=== PATIENT | female | born 1985 | race Caucasian/White ===

== ENCOUNTER 2023-07-02 03:50 | Inpatient (IN) | payer MEDICAID, OTHER ==
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
[2023-07-02 05:42] LABS: Basophils % (A) 0 %; Eosinophils # (A) 0.2 k/uL (0-0.7); Eosinophils % (A) 2 %; HCT 40.8 % (34.0-46.0); HGB 13.3 gm/dL (11.4-16.0); Lymphocytes # (A) 1.8 k/uL (1.0-4.8); Lymphocytes % (A) 22 %; MCH 28.3 pg (25.0-35.0); MCHC 32.6 g/dL (31.0-37.0); MCV 86.8 fL (80.0-100.0); Mean Platelet Volume 7.6; Monocytes # (A) 0.4 k/uL (0-1.0); Monocytes % (A) 4 %; Neutrophils # (A) 5.8 k/uL (1.3-7.7); Neutrophils % (A) 70 %; Platelet Count 350 k/uL (150-450); RDW 13.8 % (11.5-15.5); WBC 8.2 k/uL (3.8-10.6)
[2023-07-02 05:46] LABS: Acetaminophen <10.0 ug/mL; Alcohol <10 mg/dL; Salicylate <1.0 mg/dL
[2023-07-02 13:35] LABS: ALT 22 U/L (4-34); AST 21 U/L (14-36); African American GFR (CKD) >90 (>60 ml/min/1.73 sqM); Albumin 4.1 g/dL (3.5-5.0); Alkaline Phosphatase 71 U/L (38-126); Anion Gap 14 mmol/L; Blood Urea Nitrogen 13 mg/dL (7-17); Calcium 9.3 mg/dL (8.4-10.2); Carbon Dioxide 22 mmol/L (22-30); Chloride 104 mmol/L (98-107); Glucose 165 mg/dL (74-99); Non-African American GFR(CKD) >90 (>60 ml/min/1.73 sqM); Potassium 3.9 mmol/L (3.5-5.1); Sodium 140 mmol/L (137-145); Total Bilirubin 0.4 mg/dL (0.2-1.3); Total Protein 7.3 g/dL (6.3-8.2)
[2023-07-02] MEDS ORDERED: ACETAMINOPHEN TAB 325 MG TAB PO PRN (20:49)
[2023-07-02] MEDS ORDERED: MAG HYDROX/AL HYDROX/SIMETH 30 ML CUP PO PRN (20:49)
[2023-07-02] MEDS ORDERED: MAGNESIUM HYDROXIDE 2,400 MG/30 ML CUP PO PRN (20:49)
[2023-07-02] MEDS ORDERED: HALOPERIDOL LACTATE 5 MG/ML 1 ML VIAL IM PRN (20:52)
[2023-07-02] MEDS ORDERED: haloperidoL 5 MG TAB PO PRN (20:52)
[2023-07-02] MEDS ORDERED: LORazepam 2 MG/ML INJ IM PRN (20:52)
[2023-07-02] MEDS ORDERED: LORazepam 1 MG TAB PO PRN (20:52)
[2023-07-03] MEDS: LEVOTHYROXINE 25 MCG TAB PO SCH (06:54)
[2023-07-03] MEDS ORDERED: OXcarbazepine 300 MG TAB PO SCH (09:00)
[2023-07-03] MEDS ORDERED: NICOTINE 14MG/24HR PATCH TRANSDERM SCH (09:00)
[2023-07-03] MEDS: metFORMIN 500 MG TAB PO SCH ×2 (09:41→18:09)
[2023-07-03] MEDS: CHOLECALCIFEROL 25 MCG (1000 IU) TABLET PO SCH (09:43)
[2023-07-03] MEDS: VIENVA PO SCH (09:49)
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
[2023-07-03] MEDS ORDERED: DEXTROSE 50% SYRINGE 50 ML IVP PRN ×2 (12:34)
[2023-07-03] MEDS ORDERED: ALBUTEROL INHALER 60 PUFF/8 GM INHALER (MHU) INHALATION PRN (12:34)
--- NOTE | 2023-07-03 12:35 | P.CONS ---
History of Present Illness - Reason for Consult Consult date: 07/03/23 - Chief Complaint Flight of ideas - History of Present Illness * 37-year-old patient who presented to the emergency department in need for a test. She has a past medical history significant for hypothyroid, asthma, diabetes mellitus At the time of evaluation in ER patient had flight of ideas, and elicited depressed mood, patient was noted to be risk for self- harm and was admitted to behavioral health unit for depression and suicidal ideation. * Workup obtained at the time of presentation included CBC which was essentially normal, serum chemistry showed normal sodium renal profile blood glucose 165 * Toxicology within normal limits patient tested negative for Covid, urine test ordered however pending REVIEW OF SYSTEMS: CONSTITUTIONAL: No fever, no malaise, no fatigue. HEENT: No recent visual problems or hearing problems. Denied any sore throat. CARDIOVASCULAR: No chest pain, orthopnea, PND, no palpitations, no syncope. PULMONARY: No shortness of breath, no cough, no hemoptysis. GASTROINTESTINAL: No diarrhea, no nausea, no vomiting, no abdominal pain. NEUROLOGICAL: No headaches, no weakness, no numbness. HEMATOLOGICAL: Denies any bleeding or petechiae. GENITOURINARY: Denies any burning micturition, frequency, or urgency. MUSCULOSKELETAL/RHEUMATOLOGICAL: Denies any joint pain, swelling, or any muscle pain. ENDOCRINE: Denies any polyuria or polydipsia. PHYSICAL EXAMINATION: GENERAL: The patient is alert and oriented x3, not in any acute distress. Well developed, well nourished. HEENT: Pupils are round and equally reacting to light. EOMI. No scleral icterus. CARDIOVASCULAR: S1 and S2 present. No murmurs, rubs, or gallops. PULMONARY: Chest is clear to auscultation, no wheezing or crackles. ABDOMEN: Soft, nontender, nondistended, normoactive bowel sounds. No palpable organomegaly. MUSCULOSKELETAL: No joint swelling or deformity. EXTREMITIES: No cyanosis, clubbing, or pedal edema. NEUROLOGICAL: Gross neurological examination did not reveal any focal deficits. SKIN: No rashes. Past Medical History Past Medical History: Diabetes Mellitus History of Any Multi-Drug Resistant Organisms: None Reported Past Surgical History: No Surgical Hx Reported Past Anesthesia/Blood Transfusion Reactions: No Reported Reaction Past Psychological History: Unable to Obtain Smoking Status: Never smoker Past Alcohol Use History: None Reported Past Drug Use History: None Reported - Past Family History Father Family Medical History: Unable to Obtain Mother Family Medical History: Unable to Obtain Medications and Allergies Home Medications Medication Instructions Recorded Confirmed Type Cholecalciferol [Vitamin D3 (25 50 mcg PO DAILY 07/02/23 07/02/23 History Mcg = 1000 Iu)] Levothyroxine Sodium [Synthroid] 25 mcg PO DAILY 07/02/23 07/02/23 History OXcarbazepine [Trileptal] 300 mg PO BID 07/02/23 07/02/23 History Vienva 0.1mg-20mcg 1 tab PO DAILY 07/02/23 07/02/23 History metFORMIN HCL ER [Glucophage XR] 500 mg PO W/SUPPER 07/02/23 07/02/23 History risperiDONE MICROSPHERES 25 mg IM Q14D 07/02/23 07/02/23 History [RisperDAL CONSTA] Allergies Allergy/AdvReac Type Severity Reaction Status Date / Time No Known Allergies Allergy Verified 07/02/23 06:45 Physical Exam Vitals: Vital Signs Temp Pulse Pulse Resp BP BP Pulse Ox 07/02/23 21:32 98.1 F 97 18 136/82 99 07/02/23 17:43 97.4 F L 89 18 107/71 99 Intake and Output 07/02/23 07/03/23 07/03/23 22:59 06:59 14:59 Other: Weight 109.117 kg Results CBC & Chem 7: 07/02/23 04:21 07/02/23 13:10 Labs: Abnormal Lab Results - Last 24 Hours (Table) 07/02/23 Range/Units 13:10 Glucose 165 H (74-99) mg/dL Assessment and Plan Assessment: Assessment and plan * Depression with suicidal ideation * Hypothyroid * History of asthma * Diabetes mellitus type 2 * In regards to her depressed mood, continue management in behavioral health unit continued debridement and kane safety precautions * In regards to hypothyroid continue patient on Synthyroid * In regards to history of asthma continue albuterol as needed * In regards to diabetes mellitus continue patient on metformin, continue c orrectional insulin and Accu-Cheks Time with Patient: Greater than 30
[2023-07-03 17:59] LABS: Glucose,Whole Blood 105 mg/dL (70-110)
[2023-07-03] MEDS: INSULIN ASPART (NovoLOG) 100 UNIT/ML VIAL SQ SCH ×2 (18:08→20:16)
[2023-07-03 20:07] LABS: Glucose,Whole Blood 116 mg/dL (70-110)
[2023-07-03] MEDS: PALIPERIDONE 3 MG TAB.ER.24 PO SCH (20:59)
[2023-07-03] MEDS: traZODone HCL 50 MG TAB PO SCH (20:59)
[2023-07-04] MEDS: LEVOTHYROXINE 25 MCG TAB PO SCH (06:35)
[2023-07-04 07:52] LABS: Glucose,Whole Blood 136 mg/dL (70-110)
[2023-07-04] MEDS: INSULIN ASPART (NovoLOG) 100 UNIT/ML VIAL SQ SCH ×4 (08:31→20:14)
[2023-07-04] MEDS: VIENVA PO SCH (09:16)
[2023-07-04] MEDS: metFORMIN 500 MG TAB PO SCH ×2 (09:23→17:58)
[2023-07-04] MEDS: PALIPERIDONE 3 MG TAB.ER.24 PO SCH (09:24)
[2023-07-04] MEDS: CHOLECALCIFEROL 25 MCG (1000 IU) TABLET PO SCH (09:24)
--- NOTE | 2023-07-04 11:23 | P.PN ---
Progress Note - Text Progress Note Date: 07/04/23 Interval History: Patient was seen [wandering the hallways] and was directable and agreeable to speak with health underwriter in the office. Patient states she's "goiing great" and the meds are "marika helping her relax." . At this time patient denies any suicidal or homical ideations, intent or plan. Patient continues to be Disorganized, bizarre. tangential. Patient continues having AH, of her "mother in law" telling her what to do, denies visual hallucinations and still remains dilusional about "the world being in a holocaust" States she got no sleep because she was pondering how to "take over the world". Patient had underwear hanging from her mouth, and socks on her hands Patient denies any side effects from the medications and has been compliant with meds. Mental Status Exam: General Appearance: Patient appears to be disheveled, and older than stated age. is alert, patient dressed in street clothing, with a hospital gown over it, attempts to cooperate. Patient appears to have poor hygiene and grooming. Behavior: [Patient is calmly seated without any agitated behavior. Bizarre Loose associations. Speech: Patient's speech is fluent and nonpressured. Disorganized, bizarre. tangential Mood/Affect: Mood is improving mildly, affect is congruent and constricted. Suicidality/Homicidality: Patient denies having any suicidal or homicidal ideation intent or plan. Perceptions: Patient denies any visual hallucinations and denies any auditory hallucinations Though content/process: Patient is delusional, paranoid, disorganized, loose associations. Memory and concentration: AOX3, grossly intact for the purposes of this session Judgment and insight:: chronically poor Assessment Schizophrenia Plan: -Patient is admitted under involuntary status to MHU for stabilization of psychiatric symptoms and safety. Patient has not signed adult voluntary form and medication consent and is placed in patient's chart. A second certification was completed and along with petition will be filed for court. -Medication: increase.Invega po 6mg qhs and Invega 3mg qam for psychosis, trazadone 50mg qhs for sleep/mood. plan will be to switch patient onto Invegas sustenna to ensure compliance -When necessary Ativan and Haldol for agitation/aggression. -NRT - non smoker -SW on board for discharge planning. Encouraged the patient to participate in milieu. Currently awaiting deferral with brasswind instrument repairer and court date.[]
[2023-07-04 12:47] LABS: Glucose,Whole Blood 97 mg/dL (70-110)
[2023-07-04 13:26] LABS: N. gonorrhoeae,PCR Negative (Negative)
[2023-07-04 17:57] LABS: Glucose,Whole Blood 118 mg/dL (70-110)
[2023-07-04 20:11] LABS: Glucose,Whole Blood 140 mg/dL (70-110)
[2023-07-04] MEDS: traZODone HCL 50 MG TAB PO SCH (21:19)
[2023-07-04] MEDS: PALIPERIDONE 6 MG TAB.ER.24 PO SCH (21:19)
[2023-07-05] MEDS: LEVOTHYROXINE 25 MCG TAB PO SCH (06:25)
[2023-07-05 07:57] LABS: Glucose,Whole Blood 135 mg/dL (70-110)
[2023-07-05] MEDS: INSULIN ASPART (NovoLOG) 100 UNIT/ML VIAL SQ SCH ×4 (09:15→20:14)
[2023-07-05] MEDS: metFORMIN 500 MG TAB PO SCH ×2 (09:18→20:52)
[2023-07-05] MEDS: PALIPERIDONE 3 MG TAB.ER.24 PO SCH (09:19)
[2023-07-05] MEDS: CHOLECALCIFEROL 25 MCG (1000 IU) TABLET PO SCH (09:19)
[2023-07-05] MEDS: VIENVA PO SCH (09:20)
--- NOTE | 2023-07-05 09:58 | P.PN ---
Progress Note - Text Progress Note Date: 07/05/23 Interval History: Patient was seen wandering the hallways and was directable and agreeable to speak with typewriter assembly and parts inspector in the office. Patient claims that she is scared of sports therapist Herminia. She claims he believes that he is her father. She continues to ramble, continues to be fairly delusional, loosely formed. Disorganized thoughts. Claims that she did not sleep well last night. Has mainly keeping herself in her room. Continues to have unkempt/disheveled appearance. Patient had underwear hanging from her mouth, and socks on her hands Patient denies any side effects from the medications and has been compliant with meds. Mental Status Exam: General Appearance: Patient appears to be disheveled, and older than stated age. is alert, patient dressed in street clothing, with a hospital gown over it, attempts to cooperate. Patient appears to have poor hygiene and grooming. Behavior: [Patient is calmly seated without any agitated behavior. Bizarre Loose associations. Speech: Patient's speech is fluent and nonpressured. Disorganized, bizarre. tangential Mood/Affect: Mood is improving mildly, affect is congruent and constricted. Suicidality/Homicidality: Patient denies having any suicidal or homicidal ideation intent or plan. Perceptions: Patient denies any visual hallucinations and denies any auditory hallucinations Though content/process: Patient is delusional, paranoid, disorganized, loose associations. Memory and concentration: AOX3, grossly intact for the purposes of this session Judgment and insight:: chronically poor Assessment Schizophrenia Plan: -Patient is admitted under involuntary status to MHU for stabilization of psychiatric symptoms and safety. Patient has not signed adult voluntary form and medication consent and is placed in patient's chart. A second certification was completed and along with petition will be filed for court. -Medication: Invega po 6mg qhs and 3mg qam for psychosis, increased trazadone 100 mg qhs for sleep/mood. plan will be to switch patient onto Invegas sustenna to ensure compliance -When necessary Ativan and Haldol for agitation/aggression. -NRT - non smoker -SW on board for discharge planning. Encouraged the patient to participate in milieu. Currently awaiting deferral with litigation attorney and court date.
[2023-07-05 12:52] LABS: Glucose,Whole Blood 124 mg/dL (70-110)
[2023-07-05 13:12] LABS: Amorphous Sediment,Urine Rare /hpf; Appearance,Urine Cloudy (Clear); Bacteria,Urine Rare /hpf; Bilirubin,Urine Negative (Negative); Blood,Urine Negative (Negative); Color,Urine Light Yellow; Glucose,Urine (UA) 3+ (Negative); Ketones,Urine Negative (Negative); Leukocyte Esterase,Urine Negative (Negative); Mucus,Urine Few /hpf; Nitrite,Urine Negative (Negative); PH, Urine 5.5 (5.0-8.0); Protein,Urine Negative (Negative); RBC,Urine 1 /hpf (0-5); Specific Gravity,Urine 1.021 (1.001-1.035); Squamous Epithelial Cell,Urine 7 /hpf (0-4); Urobilinogen,Urine <2.0 mg/dL (<2.0); WBC,Urine 1 /hpf (0-5)
[2023-07-05 13:15] LABS: Amphetamine Screen,Urine Not Detected (NotDetected); Barbiturate Screen,Urine Not Detected (NotDetected); Benzodiazepines Screen,Urine Not Detected (NotDetected); Cocaine Screen,Urine Not Detected (NotDetected); Methadone Screen, Urine Not Detected (NotDetected); Opiate Screen,Urine Not Detected (NotDetected); Oxycodone Screen, Urine Not Detected (NotDetected); Phencyclidine Screen,Urine Not Detected (NotDetected); Tricyclic Antidepressant,Urine Not Detected (NotDetected); Urn Cannabinoid Scrn Not Detected (NotDetected)
[2023-07-05 17:38] LABS: Glucose,Whole Blood 126 mg/dL (70-110)
[2023-07-05 20:12] LABS: Glucose,Whole Blood 137 mg/dL (70-110)
[2023-07-05] MEDS: traZODone HCL 100 MG TAB PO SCH (20:52)
[2023-07-05] MEDS: PALIPERIDONE 6 MG TAB.ER.24 PO SCH (20:52)
[2023-07-06] MEDS: LEVOTHYROXINE 25 MCG TAB PO SCH (06:39)
[2023-07-06 07:45] LABS: Glucose,Whole Blood 125 mg/dL (70-110)
[2023-07-06] MEDS: INSULIN ASPART (NovoLOG) 100 UNIT/ML VIAL SQ SCH (09:18)
[2023-07-06] MEDS: PALIPERIDONE 3 MG TAB.ER.24 PO SCH (09:20)
[2023-07-06] MEDS: metFORMIN 500 MG TAB PO SCH ×2 (09:20→18:29)
[2023-07-06] MEDS: CHOLECALCIFEROL 25 MCG (1000 IU) TABLET PO SCH (09:21)
[2023-07-06] MEDS: VIENVA PO SCH (10:09)
--- NOTE | 2023-07-06 10:37 | P.PN ---
Progress Note - Text Progress Note Date: 07/06/23 Interval History: Patient was seen wandering the hallways and was directable and agreeable to speak with marketing underwriter in the office. She claims that she has been mainly staying in her room. She claims that she is feeling tired today. She states that she wants to be reunited with her mother again who has [place]. She continues to ramble, continues to be fairly delusional, loosely formed, improving mildly. Claims that she did sleep well last night however states that be feeling tired at this time.Continues to have unkempt/disheveled appearance. Patient had underwear hanging from her mouth, and socks on her hands Patient denies any side effects from the medications and has been compliant with meds. Mental Status Exam: General Appearance: Patient appears to be disheveled, and older than stated age. is alert, patient dressed in street clothing, with a hospital gown over it, attempts to cooperate. Patient appears to have poor hygiene and grooming. Behavior: [Patient is calmly seated without any agitated behavior. Bizarre Loose associations. Maryuri improving Speech: Patient's speech is fluent and nonpressured. Disorganized, Cristo, improving Mood/Affect: Mood is improving mildly, affect is congruent and constricted. Suicidality/Homicidality: Patient denies having any suicidal or homicidal ideation intent or plan. Perceptions: Patient denies any visual hallucinations and denies any auditory hallucinations Though content/process: Patient is delusional, paranoid, disorganized, loose associations. Memory and concentration: AOX3, grossly intact for the purposes of this session Judgment and insight:: chronically poor, improving mildly Assessment Schizophrenia Plan: -Patient is admitted under involuntary status to MHU for stabilization of psychiatric symptoms and safety. Patient has not signed adult voluntary form and medication consent and is placed in patient's chart. -Medication: Invega po 6mg qhs and 3mg qam for psychosis, trazadone 100 mg qhs for sleep/mood. plan will be to switch patient onto Invegas sustenna to ensure compliance -When necessary Ativan and Haldol for agitation/aggression. -NRT - non smoker -SW on board for discharge planning. Encouraged the patient to participate in milieu. Currently awaiting deferral with compliance attorney and court date.
[2023-07-06] MEDS: PALIPERIDONE 6 MG TAB.ER.24 PO SCH (20:26)
[2023-07-06] MEDS: traZODone HCL 100 MG TAB PO SCH (20:26)
[2023-07-07] MEDS: LEVOTHYROXINE 25 MCG TAB PO SCH (07:03)
[2023-07-07] MEDS: VIENVA PO SCH (08:21)
[2023-07-07] MEDS: PALIPERIDONE 3 MG TAB.ER.24 PO SCH ×2 (08:21→21:05)
[2023-07-07] MEDS: metFORMIN 500 MG TAB PO SCH ×2 (08:21→21:05)
[2023-07-07] MEDS: CHOLECALCIFEROL 25 MCG (1000 IU) TABLET PO SCH (08:22)
--- NOTE | 2023-07-07 11:54 | P.PN ---
Progress Note - Text Progress Note Date: 07/07/23 Interval History: Patient was seen wandering the hallways and was directable and agreeable to speak with communications writer in the office. Claims that she is scared of Evelyn Ryan, her "so called mom". Claims that she did sleep well last night. States she is more awake today, denies AH/VH. denies SI/HI. She is going to some groups. Patient still rambling and having loose associations, mildly improving..Continues to have unkempt/disheveled appearance, mildly improving.. mainly been isolating on the unit. patient appears to be mildly less bizarre and more appropriate during interaction/conversation. Patient denies any side effects from the medications and has been compliant with meds. Still waiting for patent prosecution attorney to come for deferral vs treatment order. Mental Status Exam: General Appearance: Patient appears to be disheveled, and older than stated age. is alert, patient dressed in street clothing, with a hospital gown over it, attempts to cooperate. Patient appears to have poor hygiene and grooming. Behavior: Patient is calmly seated without any agitated behavior. Bizarre Loose associations. mildly improving Speech: Patient's speech is fluent and nonpressured. Disorganized, Bizarre, mildly improving Mood/Affect: Mood is improving mildly, affect is congruent and constricted. Suicidality/Homicidality: Patient denies having any suicidal or homicidal ideation intent or plan. Perceptions: Patient denies any visual hallucinations and denies any auditory hallucinations Though content/process: Patient is delusional, paranoid, disorganized, loose associations.mildly improving Memory and concentration: AOX3, grossly intact for the purposes of this session Judgment and insight:: chronically poor, improving mildly Assessment Schizophrenia Plan: -Patient is admitted under involuntary status to MHU for stabilization of psychiatric symptoms and safety. Patient has not signed adult voluntary form and medication consent and is placed in patient's chart. -Medication: increase Invega po 9mg qhs and 3mg qam for psychosis, decrease trazadone 50 mg qhs for sleep/mood. plan will be to switch patient onto Invegas sustenna to ensure compliance -When necessary Ativan and Haldol for agitation/aggression. -NRT - non smoker -SW on board for discharge planning. Encouraged the patient to participate in milieu. Currently awaiting deferral with patent prosecution attorney and court date.
[2023-07-07] MEDS: traZODone HCL 50 MG TAB PO SCH (21:05)
[2023-07-08] MEDS: LEVOTHYROXINE 25 MCG TAB PO SCH (06:58)
[2023-07-08] MEDS: VIENVA PO SCH (07:42)
[2023-07-08] MEDS: metFORMIN 500 MG TAB PO SCH ×2 (08:04→17:42)
[2023-07-08] MEDS: CHOLECALCIFEROL 25 MCG (1000 IU) TABLET PO SCH (08:05)
[2023-07-08] MEDS: PALIPERIDONE 3 MG TAB.ER.24 PO SCH ×2 (08:05→20:36)
--- NOTE | 2023-07-08 12:02 | P.PN ---
Progress Note - Text Progress Note Date: 07/08/23 Interval History: Patient was seen at the bedside and agreeable to speak with underwriter mortgage loan Claims that she did sleep well last night.. She is going to some groups. Patient still rambling and having loose associations, dilusional, flight of ideas. Continues to have unkempt/disheveled appearance, with "ex girlfriends underwear around her neck, because it's like a 'security blanket" and she misses her. Mainly been isolating in her room. patient appears to bizarre today. Patient denies any side effects from the medications and has been compliant with meds. Denies SI/HI, denies VH, but admits to hearing her mother talking to her. Electric Blasting Cap Assembler will be in on July 10 for deferral Mental Status Exam: General Appearance: Patient appears to be disheveled, and older than stated age. is alert, patient dressed in street clothing, with a hospital gown over it, attempts to cooperate. Patient appears to have poor hygiene and grooming. Behavior: Patient is calmly seated without any agitated behavior. Bizarre Loose associations. mildly improving Speech: Patient's speech is fluent and nonpressured. Disorganized, Bizarre, mildly improving Mood/Affect: Mood is improving mildly, affect is congruent and constricted. Suicidality/Homicidality: Patient denies having any suicidal or homicidal ideation intent or plan. Perceptions: Patient denies any visual hallucinations and denies any auditory hallucinations Though content/process: Patient is delusional, paranoid, disorganized, loose associations.mildly improving Memory and concentration: AOX3, grossly intact for the purposes of this session Judgment and insight:: chronically poor, improving mildly Assessment Schizophrenia Plan: -Patient is admitted under involuntary status to MHU for stabilization of psychiatric symptoms and safety. Patient has not signed adult voluntary form and medication consent and is placed in patient's chart. -Medication: continue Invega po 9mg qhs and 3mg qam for psychosis, trazadone 50 mg qhs for sleep/mood. plan will be to switch patient onto HAND to ensure compliance -When necessary Ativan and Haldol for agitation/aggression. -NRT - non smoker -SW on board for discharge planning. Encouraged the patient to participate in milieu. Currently awaiting deferral with finance attorney and court date. Deferral will be on 07/10.
[2023-07-08] MEDS: traZODone HCL 50 MG TAB PO SCH (20:35)
[2023-07-09] MEDS: LEVOTHYROXINE 25 MCG TAB PO SCH (06:10)
[2023-07-09] MEDS: metFORMIN 500 MG TAB PO SCH ×2 (08:49→17:54)
[2023-07-09] MEDS: CHOLECALCIFEROL 25 MCG (1000 IU) TABLET PO SCH (08:50)
[2023-07-09] MEDS: PALIPERIDONE 3 MG TAB.ER.24 PO SCH (08:50)
[2023-07-09] MEDS: VIENVA PO SCH (08:50)
--- NOTE | 2023-07-09 11:13 | P.PN ---
Progress Note - Text Progress Note Date: 07/09/23 Patient was seen in the hallway and agreeable to speak with engineering writer in the of vi. Claims that she did sleep well last night.. She is going to some groups. Patient still rambling and having loose associations, dilusional, flight of ideas, mildly improving. Continues to have unkempt/disheveled appearance, mildly improving. Mainly been isolating in her room. patient appears to be less bizarre today. States that 'this is a safe place, and I like it". Patient denies any side effects from the medications and has been compliant with meds. Denies SI/HI, denies VH/AH. Batch Trucker will be in on July 10 for deferral Mental Status Exam: General Appearance: Patient appears to be disheveled, mildly improving and older than stated age. is alert, patient dressed in street clothing, with a hospital gown over it, attempts to cooperate. Patient appears to have poor hygiene and grooming. Behavior: Patient is calmly seated without any agitated behavior. Bizarre Loose associations. mildly improving Speech: Patient's speech is fluent and nonpressured. Disorganized, Bizarre, m ildly improving Mood/Affect: Mood is improving mildly, affect is congruent and constricted. Suicidality/Homicidality: Patient denies having any suicidal or homicidal ideation intent or plan. Perceptions: Patient denies any visual hallucinations and denies any auditory hallucinations Though content/process: Patient is delusional, paranoid, disorganized, loose associations.mildly improving Memory and concentration: AOX3, grossly intact for the purposes of this session Judgment and insight:: chronically poor, improving mildly Assessment Schizophrenia Plan: -Patient is admitted under involuntary status to MHU for stabilization of psychiatric symptoms and safety. Patient has not signed adult voluntary form and medication consent and is placed in patient's chart. Second cert filed with co urt -Medication: discontinue Invega , add Prolixin po 2.5mg bid for psychosis , trazadone 50 mg qhs for sleep/mood. plan will be to switch patient onto HAND to ensure compliance -When necessary Ativan and Haldol for agitation/aggression. -NRT - non smoker -SW on board for discharge planning. Encouraged the patient to participate in milieu. Deferral will be on 07/10.
[2023-07-09] MEDS: traZODone HCL 50 MG TAB PO SCH (20:34)
[2023-07-10] MEDS: LEVOTHYROXINE 25 MCG TAB PO SCH (06:36)
[2023-07-10] MEDS: metFORMIN 500 MG TAB PO SCH ×2 (08:35→17:45)
[2023-07-10] MEDS: CHOLECALCIFEROL 25 MCG (1000 IU) TABLET PO SCH (08:36)
[2023-07-10] MEDS: VIENVA PO SCH (08:36)
--- NOTE | 2023-07-10 10:01 | P.PN ---
Progress Note - Text Progress Note Date: 07/10/23 Patient was seen in the hallway and agreeable to speak with web content writer in the of vi. Claims that she did sleep about 8 hours last night.. She is going to groups. Patient appears less bizarre today, less rambling, .Mood and anxiety are improving. Patient denies any side effects from the medications and has been compliant with meds. Denies SI/HI, denies VH/AH. Chief Engineer'S Helper will be in on today for deferral Mental Status Exam: General Appearance: Patient appears to be disheveled, mildly improving and older than stated age. is alert, patient dressed in street clothing, with a hospital gown over it, attempts to cooperate. Patient appears to have poor hygiene and grooming. improving Behavior: Patient is calmly seated without any agitated behavior. Bizarre Loose associations. improving Speech: Patient's speech is fluent and nonpressured. Disorganized, Bizarre, improving Mood/Affect: Mood is improving mildly, affect is congruent and constricted. Suicidality/Homicidality: Patient denies having any suicidal or homicidal ideation intent or plan. Perceptions: Patient denies any visual hallucinations and denies any auditory hallucinations Though content/process: Patient is delusional, paranoid, disorganized, loose associations.mildly improving Memory and concentration: AOX3, grossly intact for the purposes of this session Judgment and insight:: chronically poor, improving mildly Assessment Schizophrenia Plan: -Patient is admitted under involuntary status to MHU for stabilization of psychiatric symptoms and safety. Patient has not signed adult voluntary form and medication consent and is placed in patient's chart. -Medication: Increase Prolixin po 2mg qam + 5mg q pm for psychosis, decrease trazadone 25 mg qhs for sleep/mood. plan will be to switch patient onto HAND to ensure compliance -When necessary Ativan and Haldol for agitation/aggression. -NRT - non smoker -SW on board for discharge planning. Encouraged the patient to participate in milieu. awaiting deferral set for today.
[2023-07-10] MEDS ORDERED: traZODone HCL 50 MG TAB PO SCH (21:00)
[2023-07-11] MEDS: LEVOTHYROXINE 25 MCG TAB PO SCH (06:10)
[2023-07-11] MEDS: CHOLECALCIFEROL 25 MCG (1000 IU) TABLET PO SCH (08:16)
[2023-07-11] MEDS: metFORMIN 500 MG TAB PO SCH ×2 (08:16→17:40)
[2023-07-11] MEDS: VIENVA PO SCH (08:17)
--- NOTE | 2023-07-11 10:20 | P.PN ---
Progress Note - Text Progress Note Date: 07/11/23 Interval history: Patient was seen in group and agreeable to speak with card writer hand in the office. She is going to groups, and sharing. Patient appears less bizarre today, less rambling, continues to improve, Patient spoke about going to a [facility] upon discharge, and is agreeable to that plan. States that her muscles are achy, stiff and tired, .Explained to patient about adding Cogentin, to help with EPS side effects, and she is agreeable. Mood and anxiety are improving. Patient denies any side effects from the medications and has been compliant with meds. Denies SI/HI, denies VH/AH. Patient deferred with her assistant county attorney on July 10. she is mildly more appropriate with her answers, less bizarre today. Mental Status Exam: General Appearance: Patient appears to be disheveled, improving and older than stated age. is alert, patient dressed in street clothing, with a hospital gown over it, attempts to cooperate. Patient appears to have poor hygiene and grooming. improving Behavior: Patient is calmly seated without any agitated behavior. Bizarre, Loose associations. improving Speech: Patient's speech is fluent and nonpressured. Bizarre, improving Mood/Affect: Mood is improving mildly, affect is congruent and constricted, improving mildly Suicidality/Homicidality: Patient denies having any suicidal or homicidal ideation intent or plan. Perceptions: Patient denies any visual hallucinations and denies any auditory hallucinations Though content/process: Patient is delusional, disorganized, mildly improving Memory and concentration: AOX3, grossly intact for the purposes of this session Judgment and insight:: chronically poor, improving mildly Assessment Schizophrenia Plan: -Patient is admitted under involuntary status to MHU for stabilization of psychiatric symptoms and safety. Patient has not signed adult voluntary form and medication consent and is placed in patient's chart. -Medication: Increase Prolixin po 2mg qam + 6mg q pm for psychosis, d/c trazadone. Add cogentin 0.5 qhs for EPS prophylaxis/insomnia. plan will be to switch patient onto HAND to ensure compliance. -When necessary Ativan and Haldol for agitation/aggression. -NRT - non smoker -SW on board for discharge planning. Encouraged the patient to participate in milieu. Patient deferred with her assistant county attorney on July 10. Likely discharge early next week, once placement is established at a [facility].
[2023-07-11] MEDS: BENZTROPINE MESYLATE 0.5 MG TAB PO SCH (20:30)
[2023-07-12] MEDS: CHOLECALCIFEROL 25 MCG (1000 IU) TABLET PO SCH (09:39)
[2023-07-12] MEDS: LEVOTHYROXINE 25 MCG TAB PO SCH (09:39)
[2023-07-12] MEDS: VIENVA PO SCH (09:39)
[2023-07-12] MEDS: metFORMIN 500 MG TAB PO SCH ×2 (09:40→17:54)
--- NOTE | 2023-07-12 13:27 | P.PN ---
Progress Note - Text Progress Note Date: 07/12/23 Interval history: Patient was seen in long and agreeable to speak with typewriter repairer. Patient is able to have a pleasant conversation about her likes for literature. She states that she does not have any groups to attend on the weekend but also did not like the focus she found on the unit. She was excited to be provided poetry by Talita. She states that her mood is "good ". She denies all concerns. Patient has been ambulating back and forth on the unit and therefore her heart rate was noted to be mildly elevated. She reports having slept well last night. She endorses good appetite. She denies any muscle stiffness or discomfort today. Mood and anxiety are improving. Patient denies any side effects from the medications and has been compliant with meds. Denies SI/HI, denies VH/AH. Mental Status Exam: General Appearance: Patient appears to be disheveled, improving and older than stated age. is alert, patient dressed in street clothing, with a hospital gown over it, attempts to cooperate. Patient appears to have poor hygiene and grooming. improving Behavior: Patient is calmly seated without any agitated behavior. Speech: Patient's speech is fluent and nonpressured. Mood/Affect: Mood is improving mildly, affect is congruent and constricted Suicidality/Homicidality: Patient denies having any suicidal or homicidal ideation intent or plan. Perceptions: Patient denies any visual hallucinations and denies any auditory hallucinations Though content/process: Patient is less delusional, is more logical Memory and concentration: AOX3, grossly intact for the purposes of this session Judgment and insight:: chronically poor, improving mildly Vital Signs Temp 97.3 F L 07/12/23 09:44 Pulse 117 H 07/12/23 09:44 Resp 16 07/12/23 09:44 BP 119/70 07/12/23 09:44 Pulse Ox 97 07/12/23 09:44 FiO2 Assessment Schizophrenia Plan: -Patient is admitted under involuntary status to MHU for stabilization of psychiatric symptoms and safety. Patient has not signed adult voluntary form and medication consent and is placed in patient's chart. -Medication: Prolixin po 2mg qam + 6mg q pm for psychosis. cogentin 0.5 qhs for EPS prophylaxis/insomnia. plan will be to switch patient onto HAND to ensure compliance. -When necessary Ativan and Haldol for agitation/aggression. -NRT - non smoker -SW on board for discharge planning. Encouraged the patient to participate in milieu. Patient deferred with her document review attorney on July 10. Likely discharge early next week, once placement is established at a senior care.
[2023-07-12] MEDS: BENZTROPINE MESYLATE 0.5 MG TAB PO SCH (20:27)
[2023-07-13] MEDS: LEVOTHYROXINE 25 MCG TAB PO SCH (06:00)
[2023-07-13] MEDS: metFORMIN 500 MG TAB PO SCH ×2 (08:16→17:10)
[2023-07-13] MEDS: CHOLECALCIFEROL 25 MCG (1000 IU) TABLET PO SCH (08:16)
[2023-07-13] MEDS: VIENVA PO SCH (08:17)
--- NOTE | 2023-07-13 13:30 | P.PN ---
Progress Note - Text Progress Note Date: 07/13/23 Interval history: Patient was seen bedside and agreeable to speak with video games storywriter. Patient is noted to be reading a book. She states that her mood is "good " and that she has been doing well. She denies all concerns. She reports having slept well last night. She endorses good appetite. She denies any muscle stiffness or discomfort today. She was agreeable with getting Prolixin HAND in the future and said of Prolixin PO. Mood and anxiety are improving. Patient denies any side effects from the medications and has been compliant with meds. Denies SI/HI, denies VH/AH. Mental Status Exam: General Appearance: Patient appears to be disheveled, improving and older than stated age. is alert, patient dressed in street clothing, with a hospital gown over it, attempts to cooperate. Patient appears to have poor hygiene and grooming. improving Behavior: Patient is calmly seated without any agitated behavior. Speech: Patient's speech is fluent and nonpressured. Mood/Affect: Mood is improving mildly, affect is congruent and constricted Suicidality/Homicidality: Patient denies having any suicidal or homicidal ideation intent or plan. Perceptions: Patient denies any visual hallucinations and denies any auditory hallucinations Though content/process: Patient is less delusional, is more logical Memory and concentration: AOX3, grossly intact for the purposes of this session Judgment and insight:: chronically poor, improving mildly Vital Signs Temp 97.3 F L 07/12/23 09:44 Pulse 117 H 07/12/23 09:44 Resp 16 07/12/23 09:44 BP 119/70 07/12/23 09:44 Pulse Ox 97 07/12/23 09:44 FiO2 Assessment Schizophrenia Plan: -Patient is admitted under involuntary status to MHU for stabilization of psychiatric symptoms and safety. Patient has not signed adult voluntary form and medication consent and is placed in patient's chart. -Medication: Prolixin po 2mg qam + 6mg q pm for psychosis. cogentin 0.5 qhs for EPS prophylaxis/insomnia. plan will be to switch patient onto HAND to ensure compliance. -When necessary Ativan and Haldol for agitation/aggression. -NRT - non smoker -SW on board for discharge planning. Encouraged the patient to participate in milieu. Patient deferred with her privacy attorney on July 10. Likely discharge early next week, once placement is established at a longterm.
[2023-07-13] MEDS: BENZTROPINE MESYLATE 0.5 MG TAB PO SCH (20:49)
[2023-07-14] MEDS: LEVOTHYROXINE 25 MCG TAB PO SCH (05:58)
[2023-07-14] MEDS: metFORMIN 500 MG TAB PO SCH ×2 (08:10→17:58)
[2023-07-14] MEDS: CHOLECALCIFEROL 25 MCG (1000 IU) TABLET PO SCH (08:11)
[2023-07-14] MEDS: VIENVA PO SCH (09:19)
[2023-07-14] MEDS ORDERED: fluPHENAZine DECANOATE 25 MG/ML 5ML MDV IM SCH (10:30)
--- NOTE | 2023-07-14 10:31 | P.PN ---
Progress Note - Text Progress Note Date: 07/14/23 Interval history: Patient was seen in group and agreeable to speak with creative writer in the office. She is going to groups. Patient states she is going really good today, and is sleeping well. Patient in continuing to have better hygiene and grooming. Patient appears less bizarre, and is not rambling. more goal oriented. Spoke with patient about transitioning onto a HAND today, and she is agreeable to receive it today. Patient is giving appropriate answers. Patient spoke about going to a penitentiary upon discharge, and is agreeable to that plan. Mood and anxiety are improving. Patient denies any side effects from the medications and has been compliant with meds. Denies SI/HI, denies VH/AH. Mental Status Exam: General Appearance: Patient appears to be disheveled, improving and older than stated age. is alert, patient dressed in street clothing, with a hospital gown over it, attempts to cooperate. Patient appears to have uimproving hygiene and grooming. improving Behavior: Patient is calmly seated without any agitated behavior, improving Speech: Patient's speech is fluent and nonpressured, improving Mood/Affect: Mood is improving mildly, affect is congruent and constricted, improving mildly Suicidality/Homicidality: Patient denies having any suicidal or homicidal ideation intent or plan. Perceptions: Patient denies any visual hallucinations and denies any auditory hallucinations Though content/process: Patient is delusional, disorganized, mildly improving Memory and concentration: AOX3, grossly intact for the purposes of this session Judgment and insight:: chronically poor/limited , improving mildly Assessment Schizophrenia Plan: -Patient is admitted under involuntary status to [facility]HU for stabilization of psychiatric symptoms and safety. Patient has not signed adult voluntary form and medication consent and is placed in patient's chart. -Medication: Prolixin po 2mg qam + 6mg q pm for psychosis, cogentin 0.5 qhs for EPS prophylaxis/insomnia. add Prolixin D IM 37.5mg [id number], first dose today, 07/14 -When necessary Ativan and Haldol for agitation/aggression. -NRT - non smoker -SW on board for discharge planning. Encouraged the patient to participate in milieu. Patient deferred with her assistant county attorney on July 10. Likely discharge once placement is established at a penitentiary.
[2023-07-14 13:35] VITALS: BMI 45.6
[2023-07-14] MEDS: BENZTROPINE MESYLATE 0.5 MG TAB PO SCH (20:30)
[2023-07-15] MEDS: LEVOTHYROXINE 25 MCG TAB PO SCH (06:30)
[2023-07-15] MEDS: metFORMIN 500 MG TAB PO SCH (09:06)
[2023-07-15] MEDS: VIENVA PO SCH (09:07)
[2023-07-15] MEDS: CHOLECALCIFEROL 25 MCG (1000 IU) TABLET PO SCH (09:07)
[2023-07-15 09:27] VITALS: BP 98/57; PULSE 118; RESP 18; TEMP 98.1
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
== END 2023-07-15 11:56 | disposition home or self-care (01) | DRG 750 ==
LOC: EC 03:50 → SUPCPDRO 03:50 → EDBD 20:06 → MERGE 20:06 → EEVIPCON 20:06 → 3MHU 20:06
PROVIDERS: ADMIT Psychiatry & Neurology Psychiatry; ATTEND Psychiatry & Neurology Psychiatry
DX: F20.9 Schizophrenia, unspecified (principal); E03.9 Hypothyroidism, unspecified; E11.9 Type 2 diabetes mellitus without complications; J45.909 Unspecified asthma, uncomplicated; M62.838 Other muscle spasm; Z79.890 Hormone replacement therapy; Z79.84 Long term (current) use of oral hypoglycemic drugs; Z79.899 Other long term (current) drug therapy; R45.851 Suicidal ideations; G47.00 Insomnia, unspecified; Z71.41 Alcohol abuse counseling and surveillance of alcoholic; Z71.51 Drug abuse counseling and surveillance of drug abuser
CPT/HCPCS: 36415; 80053; 80143; 80179; 80183; 80306; 80320; 81001; 81025; 83036; 85025; 87591; 87635; 87808; 99285

== ENCOUNTER 2023-12-14 09:41 | Emergency (ER) | payer OTHER ==
[2023-12-14 10:26] VITALS: BP 137/83; PULSE 87; RESP 18; TEMP 98.3
[2023-12-14 11:52] LABS: Amphetamine Screen,Urine Not Detected (NotDetected); Barbiturate Screen,Urine Not Detected (NotDetected); Benzodiazepines Screen,Urine Not Detected (NotDetected); Cocaine Screen,Urine Not Detected (NotDetected); Methadone Screen, Urine Not Detected (NotDetected); Opiate Screen,Urine Not Detected (NotDetected); Oxycodone Screen, Urine Not Detected (NotDetected); Phencyclidine Screen,Urine Not Detected (NotDetected); Tricyclic Antidepressant,Urine Not Detected (NotDetected); Urn Cannabinoid Scrn Not Detected (NotDetected)
--- NOTE | 2023-12-14 12:09 | ED ---
General Adult HPI - General Chief complaint: Psychiatric Symptoms Stated complaint: Mental Health Time Seen by Provider: 12/14/23 10:00 Source: patient, EMS, RN notes reviewed, old records reviewed Mode of arrival: EMS Limitations: no limitations - History of Present Illness Initial comments: This is a 38-year-old female who presents to the emergency department because she states she is having some suicidal ideations. Patient states that she is bored and lonely so she thinks about killing herself. Patient states in the past she is taken an overdose of pills today she has not done anything but had the thoughts. Patient denies any physical complaints today. Patient Nu[place] fever chills or cough. Patient has any chest pain palpitation difficulty breathing shortness of breath. Patient has abdominal pain patient has nausea vomiting diarrhea. - Related Data Previous Rx's Medication Instructions Recorded Albuterol Inhaler [Ventolin Hfa 1 puff INHALATION RT-TID PRN #1 07/15/23 Inhaler] each Benztropine Mesylate [Cogentin] 0.5 mg PO HS 30 Days #30 tab 07/15/23 Cholecalciferol [Vitamin D3 (25 50 mcg PO DAILY 30 Days #30 tab 07/15/23 Mcg = 1000 Iu)] Levothyroxine Sodium [Synthroid] 25 mcg PO DAILY 30 Days #30 tab 07/15/23 fluPHENAZine [Prolixin] 6 mg PO HS 3 Days #18 tab 07/15/23 fluPHENAZine decanoate [Prolixin 37.5 mg IM Q14D #1 ml 07/15/23 Decanoate] metFORMIN HCL ER [Glucophage XR] 500 mg PO W/SUPPER 30 Days #60 tab 07/15/23 Allergies Allergy/AdvReac Type Severity Reaction Status Date / Time No Known Allergies Allergy Verified 12/14/23 10:02 Review of Systems ROS Statement: Those systems with pertinent positive or pertinent negative responses have been documented in the HPI. ROS Other: All systems not noted in ROS Statement are negative. Past Medical History Past Medical History: Diabetes Mellitus, No Reported History History of Any Multi-Drug Resistant Organisms: None Reported Past Surgical History: No Surgical Hx Reported Past Anesthesia/Blood Transfusion Reactions: No Reported Reaction Past Psychological History: Anxiety, Bipolar, Depression, Schizophrenia, Unable to Obtain Smoking Status: Never smoker Past Alcohol Use History: None Reported Past Drug Use History: None Reported - Past Family History Father Family Medical History: Unable to Obtain Mother Family Medical History: Unable to Obtain General Exam - General Exam Comments Initial Comments: GENERAL: Patient is well-developed and well-nourished. Patient is nontoxic and well- hydrated and is in no acute distress. ENT: Neck is soft and supple. No significant lymphadenopathy is noted. Oropharynx is clear. Moist mucous membranes. Neck has full range of motion without eliciting any pain. EYES: The sclera were anicteric and conjunctiva were pink and moist. Extraocular movements were intact and pupils were equal round and reactive to light. Eyelids were unremarkable. PULMONARY: Unlabored respirations. Good breath sounds bilaterally. No audible rales rhonchi or wheezing was noted. CARDIOVASCULAR: There is a regular rate and rhythm without any murmurs gallops or rubs. ABDOMEN: Soft and nontender with normal bowel sounds. SKIN: Skin is clear with no lesions or rashes and otherwise unremarkable. NEUROLOGIC: Patient is alert and oriented x 2. Cranial nerves II through XII are grossly intact. Motor and sensory are also intact. Normal speech, volume and content. Symmetrical smile. MUSCULOSKELETAL: Normal extremities with adequate strength and full range of motion. LYMPHATICS: No significant lymphadenopathy is noted PSYCHIATRIC: Patient states she has been having occasional suicidal thoughts because she is bored and lonely. Patient states her mother lives next-door but she would not answer her phone today Limitations: no limitations Course Vital Signs 12/14/23 09:51 Temperature 98.3 F Pulse Rate 87 Respiratory 18 Rate Blood Pressure 137/83 O2 Sat by Pulse 98 Oximetry Medical Decision Making - Medical Decision Making Was pt. sent in by a medical professional or institution (MATEUSZ Torres, ACQUISITION CONSULTANT, urgent care, hospital, or halfway...) When possible be specific @ -No Did you speak to anyone other than the patient for history (EMS, parent, family, police, friend...)? What history was obtained from this source @ -No Did you review nursing and triage notes (agree or disagree)? Why? @ -I reviewed and agree with nursing and triage notes Were old charts reviewed (outside hosp., previous admission, EMS record, old EKG, old radiological studies, urgent care reports/EKG's, halfway records)? Report findings @ -No old charts were reviewed Differential Diagnosis (chest pain, altered mental status, abdominal pain women, abdominal pain men, vaginal bleeding, weakness, fever, dyspnea, syncope, headache, dizziness, GI bleed, back pain, seizure, CVA, palpatations, mental health, musculoskeletal)? @ -Differential Mental Health Depression, anxiety, bipolar, psychosis, schizophrenia, borderline personality, situational depression, adjustment disorder, behavioral disorder, brain tumor, malingering, substance abuse, encephalopathy, medication reaction, dementia, hypothyroidism, degenerative neurologic disorder, lupus.... This is not meant to be all-inclusive list EKG interpreted by me (3pts min.). @ -As above X-rays interpreted by me (1pt min.). @ -None done CT interpreted by me (1pt min.). @ -None done U/S interpreted by me (1pt. min.). @ -None done What testing was considered but not performed or refused? (CT, X-rays, U/S, labs)? Why? @ -None What meds were considered but not given or refused? Why? @ -None Did you discuss the management of the patient with other professionals (professionals i.e. , PA, ACQUISITION CONSULTANT, lab, RT, psych nurse, social group worker, car storer, teacher, security vehicle patrol officer, director of casework services)? Give summary @ -I spoke with the EPS nurse. Was smoking cessation discussed for >3mins.? @ -No Was critical care preformed (if so, how long)? @ -No Were there social determinants of health that impacted care today? How? (Homelessness, low income, unemployed, alcoholism, drug addiction, transportati on, low edu. Level, literacy, decrease access to med. care, assisted, rehab)? @ -No Was there de-escalation of care discussed even if they declined (Discuss DNR or withdrawal of care, Hospice)? DNR status @ -No What co-morbidities impacted this encounter? (DM, HTN, Smoking, COPD, CAD, Cancer, CVA, ARF, Chemo, Hep., AIDS, mental health diagnosis, sleep apnea, morbid obesity)? @ -None Was patient admitted / discharged? Hospital course, mention meds given and route, prescriptions, significant lab abnormalities, going to OR and other pertinent info. @ -EPS evaluated the patient and spoke with the psychiatrist it was concluded that the patient could go home and be safe. Patient agreed with this patient was given a safety plan. Undiagnosed new problem with uncertain prognosis? @ -No Drug Therapy requiring intensive monitoring for toxicity (Heparin, Nitro, Insulin, Cardizem)? @ -No Were any procedures done? @ -No Diagnosis/symptom? @ -Situational depression Acute, or Chronic, or Acute on Chronic? @ -Acute Uncomplicated (without systemic symptoms) or Complicated (systemic symptoms)? @ -Complicated Side effects of treatment? @ -No Exacerbation, Progression, or Severe Exacerbation? @ -No Poses a threat to life or bodily function? How? (Chest pain, [place], [place], pneumonia, PE, COPD, DKA, ARF, appy, cholecystitis, CVA, Diverticulitis, Homicidal, Suicidal, threat to staff... and all critical care pts) @ -No - Lab Data Lab Results 12/14/23 Range/Units 10:42 Urine Opiates Screen Not Detected (NotDetected) Ur Oxycodone Screen Not Detected (NotDetected) Urine Methadone Screen Not Detected (NotDetected) Ur Barbiturates Screen Not Detected (NotDetected) U Tricyclic Antidepress Not Detected (NotDetected) Ur Phencyclidine Scrn Not Detected (NotDetected) Ur Amphetamines Screen Not Detected (NotDetected) U Methamphetamines Scrn Not Detected (NotDetected) U Benzodiazepines Scrn Not Detected (NotDetected) Urine Cocaine Screen Not Detected (NotDetected) U Marijuana (THC) Screen Not Detected (NotDetected) Disposition Clinical Impression: Situational depression Disposition: HOME SELF-CARE Condition: Good Instructions (If sedation given, give patient instructions): Depression (ED) Is patient prescribed a controlled substance at d/c from ED?: No Referrals: Beverly Singh MD [Primary Care Provider] - 1-2 days Time of Disposition: 12:09
== END 2023-12-14 12:35 | disposition home or self-care (01) ==
LOC: EC 09:41
DX: R45.851 Suicidal ideations (principal); F32.A Depression, unspecified
CPT/HCPCS: 80306; 82075; 99285

== ENCOUNTER 2023-12-29 13:19 | Emergency (ER) | payer OTHER ==
--- NOTE | 2023-12-29 13:46 | ED ---
Psych HPI - General Source: patient, police Mode of arrival: ambulatory Limitations: no limitations <Lazara Albright - Last Filed: 12/29/23 13:45> - General Source: RN notes reviewed, old records reviewed <Dixon Cortes - Last Filed: 12/29/23 18:14> - General Stated Complaint: Petition - Mental Health Time Seen by Provider: 12/29/23 13:45 - History of Present Illness Initial Comments: Quick note: 38-year-old female presented to the ER via police with a chief complaint of suicidal ideation. Please report patient sent an email to the [employer] teacher stating she no longer wanted to be alive. Patient states that she was either going to choke herself or take pills. Patient denies any drugs or alcohol today. No other acute complaints. (Lazara Albright) Patient states she is suicidal because she does not like where she lives. The patient states she started to think about suicide because they will not let her move out of her current situation. Patient denies any attempt. Patient states she might try to choke herself. Patient denies any physical complaints today. (Dixon Cortes) - Related Data Home Medications Medication Instructions Recorded Confirmed Albuterol Inhaler [Ventolin Hfa 1 puff INHALATION RT-TID PRN 12/29/23 12/29/23 Inhaler] FLUoxetine HCL [PROzac] 20 mg PO HS 12/29/23 12/29/23 traZODone HCL 150 mg PO HS 12/29/23 12/29/23 Previous Rx's Medication Instructions Recorded Cholecalciferol [Vitamin D3 (25 50 mcg PO DAILY 30 Days #30 tab 07/15/23 Mcg = 1000 Iu)] Levothyroxine Sodium [Synthroid] 25 mcg PO DAILY 30 Days #30 tab 07/15/23 fluPHENAZine decanoate [Prolixin 37.5 mg IM Q14D #1 ml 07/15/23 Decanoate] Allergies Allergy/AdvReac Type Severity Reaction Status Date / Time No Known Allergies Allergy Verified 12/29/23 18:00 Review of Systems ROS Other: All systems not noted in ROS Statement are negative. <Lazara Albright - Last Filed: 12/29/23 13:45> ROS Other: All systems not noted in ROS Statement are negative. <Dixon Cortes - Last Filed: 12/29/23 18:14> ROS Statement: Those systems with pertinent positive or pertinent negative responses have been documented in the HPI. Past Medical History Past Medical History: Diabetes Mellitus, No Reported History History of Any Multi-Drug Resistant Organisms: None Reported Past Surgical History: No Surgical Hx Reported Past Anesthesia/Blood Transfusion Reactions: No Reported Reaction Past Psychological History: Anxiety, Bipolar, Depression, Schizophrenia, Unable to Obtain Smoking Status: Never smoker Past Alcohol Use History: None Reported Past Drug Use History: None Reported - Past Family History Father Family Medical History: Unable to Obtain Mother Family Medical History: Unable to Obtain <Lazara Albright - Last Filed: 12/29/23 13:45> General Exam <Lazara Albright - Last Filed: 12/29/23 13:45> <Dixon Cortes - Last Filed: 12/29/23 18:14> - General Exam Comments Initial Comments: Visual Physical Exam General: Well-appearing, nontoxic, no acute distress. Head: Normocephalic, atraumatic Eyes: PERRLA, EOMI ENT: Airway patent Chest: Nonlabored breathing Skin: No visual rash, normal skin tone Neuro: Alert and oriented 3 Musculoskeletal: No gross abnormalities (Lazara Albright) GENERAL: Patient is well-developed and well-nourished. Patient is nontoxic and well- hydrated and is in no acute distress. ENT: Neck is soft and supple. No significant lymphadenopathy is noted. Oropharynx is clear. Moist mucous membranes. Neck has full range of motion without eliciting any pain. EYES: The sclera were anicteric and conjunctiva were pink and moist. Extraocular movements were intact and pupils were equal round and reactive to light. Eyelids were unremarkable. PULMONARY: Unlabored respirations. Good breath sounds bilaterally. No audible rales rhonchi or wheezing was noted. CARDIOVASCULAR: There is a regular rate and rhythm without any murmurs gallops or rubs. ABDOMEN: Soft and nontender with normal bowel sounds. SKIN: Skin is clear with no lesions or rashes and otherwise unremarkable. NEUROLOGIC: Patient is alert and oriented x3. Cranial nerves II through XII are grossly intact. Motor and sensory are also intact. Normal speech, volume and content. Symmetrical smile. MUSCULOSKELETAL: Normal extremities with adequate strength and full range of motion. LYMPHATICS: No significant lymphadenopathy is noted PSYCHIATRIC: States she is suicidal but has no plan currently except possibly choking himself. Patient understands that her living situation will not change (Dixon Cortes) Course Vital Signs 12/29/23 14:31 Temperature 98.4 F Pulse Rate 102 H Respiratory 20 Rate Blood Pressure 148/89 O2 Sat by Pulse 100 Oximetry Medical Decision Making <Lazara Albright - Last Filed: 12/29/23 13:45> <Dixon Cortes - Last Filed: 12/29/23 18:14> - Medical Decision Making I performed the quick note portion of this chart. Electronically signed by Lazara Albright PA-C (Lazara Albright) Was pt. sent in by a medical professional or institution (MATEUSZ Torres, USER EXPERIENCE DEVELOPER, urgent care, hospital, or [facility]...) When possible be specific @ -No Did you speak to anyone other than the patient for history (EMS, parent, family, police, friend...)? What history was obtained from this source @ -No Did you review nursing and triage notes (agree or disagree)? Why? @ -I reviewed and agree with nursing and triage notes Were old charts reviewed (outside hosp., previous admission, EMS record, old EKG, old radiological studies, urgent care reports/EKG's, [facility] records)? Report findings @ -No old charts were reviewed Differential Diagnosis (chest pain, altered mental status, abdominal pain women, abdominal pain men, vaginal bleeding, weakness, fever, dyspnea, syncope, headache, dizziness, GI bleed, back pain, seizure, CVA, palpatations, mental health, musculoskeletal)? @ -Differential Mental Health Depression, anxiety, bipolar, psychosis, schizophrenia, borderline personality, situational depression, adjustment disorder, behavioral disorder, brain tumor, malingering, substance abuse, encephalopathy, medication reaction, dementia, hypothyroidism, degenerative neurologic disorder, lupus.... This is not meant to be all-inclusive list EKG interpreted by me (3pts min.). @ -As above X-rays interpreted by me (1pt min.). @ -None done CT interpreted by me (1pt min.). @ -None done U/S interpreted by me (1pt. min.). @ -None done What testing was considered but not performed or refused? (CT, X-rays, U/S, labs)? Why? @ -None What meds were considered but not given or refused? Why? @ -None Did you discuss the management of the patient with other professionals (professionals i.e. , PA, USER EXPERIENCE DEVELOPER, lab, RT, psych nurse, social problems specialist, core cutter and reamer, teacher, founder and chief technical officer, medical case manager)? Give summary @ -EPS evaluated the patient and I spoke with EPS it was agreed that the patient to be discharged home with better supervision from the guardian and mobile crisis Was smoking cessation discussed for >3mins.? @ -No Was critical care preformed (if so, how long)? @ -No Were there social determinants of health that impacted care today? How? (Homelessness, low income, unemployed, alcoholism, drug addiction, transportation, low edu. Level, literacy, decrease access to med. care, shelter, rehab)? @ -No Was there de-escalation of care discussed even if they declined (Discuss DNR or withdrawal of care, Hospice)? DNR status @ -No What co-morbidities impacted this encounter? (DM, HTN, Smoking, COPD, CAD, Cancer, CVA, ARF, Chemo, Hep., AIDS, mental health diagnosis, sleep apnea, morbid obesity)? @ -None Was patient admitted / discharged? Hospital course, mention meds given and route, prescriptions, significant lab abnormalities, going to OR and other pertinent info. @ -Patient was agreeable to go home. Patient states she will be safe for going home. Undiagnosed new problem with uncertain prognosis? @ -No Drug Therapy requiring intensive monitoring for toxicity (Heparin, Nitro, Insulin, Cardizem)? @ -No Were any procedures done? @ -No Diagnosis/symptom? @ -Suicidal ideations, situational depression Acute, or Chronic, or Acute on Chronic? @ -Acute Uncomplicated (without systemic symptoms) or Complicated (systemic symptoms)? @ -Complicated Side effects of treatment? @ -No Exacerbation, Progression, or Severe Exacerbation? @ -No Poses a threat to life or bodily function? How? (Chest pain, [place], [place], pneumonia, PE, COPD, DKA, ARF, appy, cholecystitis, CVA, Diverticulitis, Homicidal, Suicidal, threat to staff... and all critical care pts) @ -No (Dixon Cortes) - Lab Data Lab Results 12/29/23 Range/Units 14:43 Urine Opiates Screen Not Detected (NotDetected) Ur Oxycodone Screen Not Detected (NotDetected) Urine Methadone Screen Not Detected (NotDetected) Ur Barbiturates Screen Not Detected (NotDetected) U Tricyclic Antidepress Not Detected (NotDetected) Ur Phencyclidine Scrn Not Detected (NotDetected) Ur Amphetamines Screen Not Detected (NotDetected) U Methamphetamines Scrn Not Detected (NotDetected) U Benzodiazepines Scrn Detected H (NotDetected) Urine Cocaine Screen Not Detected (NotDetected) U Marijuana (THC) Screen Not Detected (NotDetected) Disposition <Lazara Albright - Last Filed: 12/29/23 13:45> Is patient prescribed a controlled substance at d/c from ED?: No Time of Disposition: 18:11 <Dixon Cortes - Last Filed: 12/29/23 18:14> Clinical Impression: Situational depression Disposition: HOME SELF-CARE Condition: Good Referrals: Beverly Singh MD [Primary Care Provider] - 1-2 days
[2023-12-29 15:19] VITALS: TEMP 98.4
[2023-12-29 15:29] LABS: Amphetamine Screen,Urine Not Detected (NotDetected); Barbiturate Screen,Urine Not Detected (NotDetected); Benzodiazepines Screen,Urine Detected (NotDetected); Cocaine Screen,Urine Not Detected (NotDetected); Methadone Screen, Urine Not Detected (NotDetected); Opiate Screen,Urine Not Detected (NotDetected); Oxycodone Screen, Urine Not Detected (NotDetected); Phencyclidine Screen,Urine Not Detected (NotDetected); Tricyclic Antidepressant,Urine Not Detected (NotDetected); Urn Cannabinoid Scrn Not Detected (NotDetected)
[2023-12-29 18:42] VITALS: BP 136/82; PULSE 103; RESP 18
== END 2023-12-29 18:20 | disposition home or self-care (01) ==
LOC: EC 13:19
DX: F43.21 Adjustment disorder with depressed mood (principal); R45.851 Suicidal ideations
CPT/HCPCS: 80306; 99285

== ENCOUNTER 2024-04-28 11:45 | Emergency (ER) | payer OTHER ==
[2024-04-28 11:53] VITALS: TEMP 98.7
--- NOTE | 2024-04-28 12:40 | ED ---
Recheck HPI - General Source: patient, EMS, RN notes reviewed Mode of arrival: EMS Limitations: no limitations <Alycia Freitas - Last Filed: 04/28/24 12:38> - General Source: patient, EMS, RN notes reviewed Mode of arrival: EMS Limitations: no limitations <Corrie Brenner - Last Filed: 04/29/24 17:19> - General Chief Complaint: Recheck/Abnormal Lab/Rx Stated Complaint: Dehydration Time Seen by Provider: 04/28/24 12:02 - History of Present Illness Initial Comments: Quick [id number] female presents emergency department via EMS for chief complaint of hypertension, denies history of hypertension or taking medications for this. She also states that she feels dehydrated. She endorses an episode of diarrhea yesterday evening. Denies fevers, chills, cough, runny nose, hematochezia or dark/tarry stools. (Alycia Freitas) This is a 38-year-old female who presents to the emergency department for tachycardia and hypertension. She went to [facility] today to get her injection of Prolixin. States that she has been taking this every 2 weeks. However, she was told that her blood pressure and heart rate were too high and they would not administer it to her. They subsequently called EMS to bring her here. States that she feels somewhat dehydrated, but otherwise denies any complaints at this time. She did have an episode of diarrhea yesterday, but states that she has been fine since. Denies any abdominal pain. (Corrie Brenner) - Related Data Home Medications Medication Instructions Recorded Confirmed Albuterol Inhaler [Ventolin Hfa 1 puff INHALATION RT-TID PRN 12/29/23 12/29/23 Inhaler] FLUoxetine HCL [PROzac] 20 mg PO HS 12/29/23 12/29/23 traZODone HCL 150 mg PO HS 12/29/23 12/29/23 Previous Rx's Medication Instructions Recorded Cholecalciferol [Vitamin D3 (25 50 mcg PO DAILY 30 Days #30 tab 07/15/23 Mcg = 1000 Iu)] Levothyroxine Sodium [Synthroid] 25 mcg PO DAILY 30 Days #30 tab 07/15/23 fluPHENAZine decanoate [Prolixin 37.5 mg IM Q14D #1 ml 07/15/23 Decanoate] Allergies Allergy/AdvReac Type Severity Reaction Status Date / Time No Known Allergies Allergy Verified 04/28/24 11:52 Review of Systems ROS Other: All systems not noted in ROS Statement are negative. <Alycia Freitas - Last Filed: 04/28/24 12:38> ROS Other: All systems not noted in ROS Statement are negative. <Corrie Brenner - Last Filed: 04/29/24 17:19> ROS Statement: Those systems with pertinent positive or pertinent negative responses have been documented in the HPI. Past Medical History Past Medical History: Diabetes Mellitus, No Reported History History of Any Multi-Drug Resistant Organisms: None Reported Past Surgical History: No Surgical Hx Reported Past Anesthesia/Blood Transfusion Reactions: No Reported Reaction Past Psychological History: Anxiety, Bipolar, Depression, Schizophrenia, Unable to Obtain Smoking Status: Never smoker Past Alcohol Use History: None Reported Past Drug Use History: None Reported - Past Family History Father Family Medical History: Unable to Obtain Mother Family Medical History: Unable to Obtain <Alycia Freitas - Last Filed: 04/28/24 12:38> General Exam Limitations: no limitations <OfeAlycia quintero - Last Filed: 04/28/24 12:38> Limitations: no limitations General appearance: alert, in no apparent distress Head exam: Present: atraumatic, normocephalic, normal inspection Respiratory exam: Present: normal lung sounds bilaterally. Absent: respiratory distress, wheezes, rales, rhonchi, stridor Cardiovascular Exam: Present: regular rate, normal rhythm, normal heart sounds. Absent: systolic murmur, diastolic murmur, rubs, gallop, clicks GI/Abdominal exam: Present: soft, normal bowel sounds. Absent: distended, tenderness, guarding, rebound, rigid Neurological exam: Present: alert, oriented X3, CN II-XII intact Psychiatric exam: Present: normal affect, normal mood Skin exam: Present: warm, dry, intact, normal color. Absent: rash <Corrie Brenner - Last Filed: 04/29/24 17:19> - General Exam Comments Initial Comments: Visual Physical Exam Vital signs reviewed General: Well-appearing, nontoxic, no acute distress. Head: Normocephalic, atraumatic Eyes: PERRLA, EOMI ENT: Airway patent Chest: Nonlabored breathing Skin: No visual rash, normal skin tone Neuro: Alert and oriented 3 Musculoskeletal: No gross abnormalities (Alycia Freitas) Course Vital Signs 04/28/24 04/28/24 04/28/24 11:46 14:31 17:43 Temperature 98.7 F Pulse Rate 110 H 96 92 Respiratory 16 18 18 Rate Blood Pressure 109/94 121/86 151/81 O2 Sat by Pulse 99 100 100 Oximetry Medical Decision Making <Alycia Freitas - Last Filed: 04/28/24 12:38> - Lab Data Result diagrams: 04/28/24 14:23 04/28/24 14:23 <Corrie Brenner - Last Filed: 04/29/24 17:19> - Medical Decision Making I completed the quick note portion of this chart signed Alycia Freitas PA-C (Alycia Freitas) This is a 38 year old female who presents to the emergency department for hypertension and tachycardia. Was pt. sent in by a medical professional or institution? @ -[facility] Did you speak to anyone other than the patient for history? @ -No Did you review nursing and triage notes? @ -Yes, and I agree, it is accurate with regards to the patient's symptoms. Were old charts reviewed? @ -No Differential Diagnosis? @ -Differential Tachycardia: Dehydration, anxiety, medications, PE, arrhythmia, this is not meant to be an all-inclusive list. EKG interpreted by me (3pts min.)? @ -EKG interpreted by me demonstrating the following: Sinus tachycardia. Ventricular rate 113 bpm, NJ interval 143 ms, QRS duration 78 ms, QTc 386 ms. X-rays interpreted by me (1pt min.)? @ -Not obtained CT interpreted by me (1pt min.)? @ -Not obtained U/S interpreted by me (1pt. min.)? @ -Not obtained What testing was considered but not performed? (CT, X-rays, U/S, labs)? Why? @ -None What meds were considered but not given? Why? @ -None Did you discuss the management of the patient with other professionals? @ -No Did you reconcile home meds? @ -No Was smoking cessation discussed for >3mins.? @ -No Was critical care preformed (if so, how long)? @ -No Were there social determinants of health that impacted care today? How? (Homelessness, low income, unemployed, alcoholism, drug addiction, transportation, low edu. Level, literacy, decrease access to med. care, fdc, rehab)? @ -No Was there de-escalation of care discussed even if they declined? (Discuss DNR or withdrawal of care, Hospice)? @ -No What co-morbidities impacted this encounter? (DM, HTN, Smoking, COPD, CAD, Cancer, CVA, Hep., AIDS, mental health diagnosis, sleep apnea, morbid obesity)? @ -Mental health diagnosis Was patient admitted / discharged? @ -Discharged. Lab work demonstrates mild leukocytosis and signs of dehydration. Patient treated with a liter bolus of IV fluids. Vitals were well-controlled in the emergency department. She was given her Prolixin injection and discharged home in stable condition. Advised following up with [facility] as scheduled in the next 2 weeks for her next injection. Case discussed with ED attending Dr. Nye. Undiagnosed new problem with uncertain prognosis? @ -None Drug Therapy requiring intensive monitoring for toxicity (Heparin, Nitro, Insulin, Cardizem)? @ -None Were any procedures done? @ -None Diagnosis/symptom? @ -Tachycardia, dehydration Acute, or Chronic, or Acute on Chronic? @ -Acute Uncomplicated (without systemic symptoms) or Complicated (systemic symptoms)? @ -Uncomplicated Side effects of treatment? @ -None Exacerbation, Progression, or Severe Exacerbation] @ -Not applicable Poses a threat to life or bodily function? @ -No (Corrie Brenner) - Lab Data Lab Results 04/28/24 04/28/24 Range/Units 14:23 14:23 WBC 11.2 H (3.8-10.6) k/uL RBC 4.53 (3.80-5.40) m/uL Hgb 12.6 (11.4-16.0) gm/dL Hct 38.9 (34.0-46.0) % MCV 85.9 (80.0-100.0) fL MCH 27.8 (25.0-35.0) pg MCHC 32.3 (31.0-37.0) g/dL RDW 14.6 (11.5-15.5) % Plt Count 383 (150-450) k/uL MPV 7.7 Neutrophils % 78 % Lymphocytes % 15 % Monocytes % 4 % Eosinophils % 1 % Basophils % 0 % Neutrophils # 8.8 H (1.3-7.7) k/uL Lymphocytes # 1.7 (1.0-4.8) k/uL Monocytes # 0.4 (0-1.0) k/uL Eosinophils # 0.2 (0-0.7) k/uL Basophils # 0.0 (0-0.2) k/uL Sodium 138 (137-145) mmol/L Potassium 4.1 (3.5-5.1) mmol/L Chloride 105 (98-107) mmol/L Carbon Dioxide 21 L (22-30) mmol/L Anion Gap 12 mmol/L BUN 23 H (7-17) mg/dL Creatinine 0.83 (0.52-1.04) mg/dL Est GFR (CKD-EPI)AfAm >90 (>60 ml/min/1.73 sqM) Est GFR (CKD-EPI)NonAf >90 (>60 ml/min/1.73 sqM) Glucose 143 H (74-99) mg/dL Calcium 9.4 (8.4-10.2) mg/dL Magnesium 2.0 (1.6-2.3) mg/dL Total Bilirubin 0.3 (0.2-1.3) mg/dL AST 20 (14-36) U/L ALT 16 (4-34) U/L Alkaline Phosphatase 110 (38-126) U/L Total Protein 7.5 (6.3-8.2) g/dL Albumin 4.4 (3.5-5.0) g/dL Amylase 41 (30-110) U/L Lipase 107 (23-300) U/L Disposition <Alycia Freitas - Last Filed: 04/28/24 12:38> Is patient prescribed a controlled substance at d/c from ED?: No Time of Disposition: 17:18 <Corrie Brenner - Last Filed: 04/29/24 17:19> Clinical Impression: Dehydration Disposition: HOME SELF-CARE Additional Instructions: Return to the emergency department with any new, worsening, or concerning symptoms. Follow up with [facility] to get your next injection in 2 weeks. Referrals: Beverly Singh MD [Primary Care Provider] - 1-2 days
[2024-04-28] MEDS: SODIUM CHLORIDE 0.9% 1,000 ML IV STA (14:29)
[2024-04-28 14:32] VITALS: RESP 18
[2024-04-28 14:36] LABS: Basophils % (A) 0 %; Eosinophils # (A) 0.2 k/uL (0-0.7); Eosinophils % (A) 1 %; HCT 38.9 % (34.0-46.0); HGB 12.6 gm/dL (11.4-16.0); Lymphocytes # (A) 1.7 k/uL (1.0-4.8); Lymphocytes % (A) 15 %; MCH 27.8 pg (25.0-35.0); MCHC 32.3 g/dL (31.0-37.0); MCV 85.9 fL (80.0-100.0); Mean Platelet Volume 7.7; Monocytes # (A) 0.4 k/uL (0-1.0); Monocytes % (A) 4 %; Neutrophils # (A) 8.8 k/uL (1.3-7.7); Neutrophils % (A) 78 %; Platelet Count 383 k/uL (150-450); RBC 4.53 m/uL (3.80-5.40); RDW 14.6 % (11.5-15.5); WBC 11.2 k/uL (3.8-10.6)
[2024-04-28 14:51] LABS: ALT 16 U/L (4-34); AST 20 U/L (14-36); African American GFR (CKD) >90 (>60 ml/min/1.73 sqM); Albumin 4.4 g/dL (3.5-5.0); Alkaline Phosphatase 110 U/L (38-126); Amylase 41 U/L (30-110); Anion Gap 12 mmol/L; Blood Urea Nitrogen 23 mg/dL (7-17); Calcium 9.4 mg/dL (8.4-10.2); Carbon Dioxide 21 mmol/L (22-30); Chloride 105 mmol/L (98-107); Glucose 143 mg/dL (74-99); Lipase 107 U/L (23-300); Non-African American GFR(CKD) >90 (>60 ml/min/1.73 sqM); Potassium 4.1 mmol/L (3.5-5.1); Sodium 138 mmol/L (137-145); Total Bilirubin 0.3 mg/dL (0.2-1.3); Total Protein 7.5 g/dL (6.3-8.2)
[2024-04-28] MEDS: fluPHENAZine DECANOATE 25 MG/ML 5ML MDV IM ONE (17:35)
[2024-04-28 17:44] VITALS: BP 151/81; PULSE 92
== END 2024-04-28 17:47 | disposition home or self-care (01) ==
LOC: EC 11:45
CPT/HCPCS: 36415; 80053; 82150; 83690; 83735; 85025; 93005; 96360; 96372; 99284

== ENCOUNTER 2024-05-10 16:08 | Emergency (ER) | payer OTHER ==
[2024-05-10 16:32] VITALS: RESP 18; TEMP 98.6
--- NOTE | 2024-05-10 16:46 | ED ---
General Adult HPI - General Chief complaint: Psychiatric Symptoms Stated complaint: Suicidal Time Seen by Provider: 05/10/24 16:10 Source: patient, RN notes reviewed, old records reviewed Mode of arrival: EMS Limitations: no limitations - History of Present Illness Initial comments: 38-year-old female presenting for psychiatric evaluation. States she had thought about taking her medication as an overdose. She states she has been sick for approximately 1 week with cough cold symptoms. Denies chest pain or dyspnea. Denies measured fever. Denies suicide attempt. - Related Data Home Medications Medication Instructions Recorded Confirmed Albuterol Inhaler [Ventolin Hfa 1 puff INHALATION RT-TID PRN 12/29/23 12/29/23 Inhaler] FLUoxetine HCL [PROzac] 20 mg PO HS 12/29/23 12/29/23 traZODone HCL 150 mg PO HS 12/29/23 12/29/23 Previous Rx's Medication Instructions Recorded Cholecalciferol [Vitamin D3 (25 50 mcg PO DAILY 30 Days #30 tab 07/15/23 Mcg = 1000 Iu)] Levothyroxine Sodium [Synthroid] 25 mcg PO DAILY 30 Days #30 tab 07/15/23 fluPHENAZine decanoate [Prolixin 37.5 mg IM Q14D #1 ml 07/15/23 Decanoate] Allergies Allergy/AdvReac Type Severity Reaction Status Date / Time No Known Allergies Allergy Verified 05/10/24 16:18 Review of Systems ROS Statement: Those systems with pertinent positive or pertinent negative responses have been documented in the HPI. ROS Other: All systems not noted in ROS Statement are negative. Past Medical History Past Medical History: Diabetes Mellitus, No Reported History History of Any Multi-Drug Resistant Organisms: None Reported Past Surgical History: No Surgical Hx Reported Past Anesthesia/Blood Transfusion Reactions: No Reported Reaction Past Psychological History: Anxiety, Bipolar, Depression, Schizophrenia, Unable to Obtain Smoking Status: Never smoker Past Alcohol Use History: None Reported Past Drug Use History: None Reported - Past Family History Father Family Medical History: Unable to Obtain Mother Family Medical History: Unable to Obtain General Exam General appearance: alert, in no apparent distress Head exam: Present: atraumatic, normocephalic Eye exam: Present: normal appearance, PERRL ENT exam: Present: normal exam Neck exam: Present: normal inspection. Absent: tenderness, meningismus Respiratory exam: Present: normal lung sounds bilaterally. Absent: respiratory distress, wheezes Cardiovascular Exam: Present: regular rate, normal rhythm GI/Abdominal exam: Present: soft. Absent: distended, tenderness, guarding, rebound Neurological exam: Present: alert, oriented X3, motor sensory deficit Psychiatric exam: Present: depressed, suicidal ideation Skin exam: Present: warm, dry, intact Course Vital Signs 05/10/24 16:15 Temperature 98.6 F Pulse Rate 105 H Respiratory 18 Rate Blood Pressure 121/86 O2 Sat by Pulse 98 Oximetry - Reevaluation(s) Reevaluation #1: 05/10/24 16:46 Cleared for EPS evaluation Medical Decision Making - Medical Decision Making Was pt. sent in by a medical professional or institution (, [employer], PRODUCTION POSTING CLERK, urgent care, hospital, or [facility]...) When possible be specific @ -No Did you speak to anyone other than the patient for history (EMS, parent, family, police, friend...)? What history was obtained from this source @ -No Did you review nursing and triage notes (agree or disagree)? Why? @ -I reviewed and agree with nursing and triage notes Were old charts reviewed (outside hosp., previous admission, EMS record, old EKG, old radiological studies, urgent care reports/EKG's, [facility] records)? Report findings @ -No old charts were reviewed Differential Mental Health Depression, anxiety, bipolar, psychosis, schizophrenia, borderline personality, situational depression, adjustment disorder, behavioral disorder, brain tumor, malingering, substance abuse, encephalopathy, medication reaction, dementia, hypothyroidism, degenerative neurologic disorder, lupus.... This is not meant to be all-inclusive list EKG interpreted by me (3pts min.). @ -As above X-rays interpreted by me (1pt min.). @ -None done CT interpreted by me (1pt min.). @ -None done U/S interpreted by me (1pt. min.). @ -None done What testing was considered but not performed or refused? (CT, X-rays, U/S, labs)? Why? @ -None What meds were considered but not given or refused? Why? @ -None Did you discuss the management of the patient with other professionals (professionals i.e. , [employer], PRODUCTION POSTING CLERK, lab, RT, psych nurse, professor of social work, car lubricator, teacher, air crew officer, rn field case manager)? Give summary @ -No Was smoking cessation discussed for >3mins.? @ -No Was critical care preformed (if so, how long)? @ -No Were there social determinants of health that impacted care today? How? (Homelessness, low income, unemployed, alcoholism, drug addiction, transportation, low edu. Level, literacy, decrease access to med. care, long term, rehab)? @ -No Was there de-escalation of care discussed even if they declined (Discuss DNR or withdrawal of care, Hospice)? DNR status @ -No What co-morbidities impacted this encounter? (DM, HTN, Smoking, COPD, CAD, Cancer, CVA, ARF, Chemo, Hep., AIDS, mental health diagnosis, sleep apnea, morbid obesity)? @ -None Was patient admitted / discharged? Hospital course, mention meds given and route, prescriptions, significant lab abnormalities, going to OR and other pertinent info. @ -Three 8-year-old female presenting with depression, suicidal ideation. Patient medically cleared and evaluated by EPS. Bartley to be safe for discharge. I agree with this assessment. Patient has signed a safety plan. Stable for discharge. Undiagnosed new problem with uncertain prognosis? @ -No Drug Therapy requiring intensive monitoring for toxicity (Heparin, Nitro, Insulin, Cardizem)? @ -No Were any procedures done? @ -No Diagnosis/symptom? @Depression Acute, or Chronic, or Acute on Chronic? @ -acute Uncomplicated (without systemic symptoms) or Complicated (systemic symptoms)? @ -Default Side effects of treatment? @ -No Exacerbation, Progression, or Severe Exacerbation? @ -No Poses a threat to life or bodily function? How? (Chest pain, [place], [place], pneumonia, PE, COPD, DKA, ARF, appy, cholecystitis, CVA, Diverticulitis, Homicidal, Suicidal, threat to staff... and all critical care pts) @ -No - Lab Data Lab Results 05/10/24 05/10/24 Range/Units 16:43 17:11 Urine Opiates Screen Not Detected (NotDetected) Ur Oxycodone Screen Not Detected (NotDetected) Urine Methadone Screen Not Detected (NotDetected) Ur Barbiturates Screen Not Detected (NotDetected) U Tricyclic Antidepress Not Detected (NotDetected) Ur Phencyclidine Scrn Not Detected (NotDetected) Ur Amphetamines Screen Not Detected (NotDetected) U Methamphetamines Scrn Not Detected (NotDetected) U Benzodiazepines Scrn Detected H (NotDetected) Urine Cocaine Screen Not Detected (NotDetected) U Marijuana (THC) Screen Not Detected (NotDetected) SARS-CoV-2 (PCR) Not Detected (Not Detectd) Disposition Clinical Impression: Depression Disposition: HOME SELF-CARE Condition: Good Instructions (If sedation given, give patient instructions): Depression (ED) Is patient prescribed a controlled substance at d/c from ED?: No Referrals: Beverly Singh MD [Primary Care Provider] - 1-2 days Time of Disposition: 17:56
[2024-05-10 17:44] LABS: Amphetamine Screen,Urine Not Detected (NotDetected); Barbiturate Screen,Urine Not Detected (NotDetected); Benzodiazepines Screen,Urine Detected (NotDetected); Cocaine Screen,Urine Not Detected (NotDetected); Methadone Screen, Urine Not Detected (NotDetected); Opiate Screen,Urine Not Detected (NotDetected); Oxycodone Screen, Urine Not Detected (NotDetected); Phencyclidine Screen,Urine Not Detected (NotDetected); Tricyclic Antidepressant,Urine Not Detected (NotDetected); Urn Cannabinoid Scrn Not Detected (NotDetected)
[2024-05-10 18:23] VITALS: BP 124/74; PULSE 87
== END 2024-05-10 18:33 | disposition home or self-care (01) ==
LOC: EC 16:08
DX: F32.A Depression, unspecified (principal)
CPT/HCPCS: 80306; 82075; 87635; 99285